=== PATIENT | female | born 1970 | race Caucasian/White ===

== ENCOUNTER → 2019-09-16 | Outpatient (CLI) | payer OTHER ==
--- NOTE | 2019-09-16 11:41 | RADIOLOGY REPORT (SQ) ---
EXAM DESCRIPTION: MRI RT LOWER JOINT WITHOUT COMPLETED DATE/TIME: 09/16/2019 10:00 am REASON FOR STUDY: M25.551 PAIN IN RIGHT HIP M25.551 PAIN IN RIGHT HIP COMPARISON: Right hip arthrogram MRI 10/31/2013 TECHNIQUE: Non arthrogram MRI righthip images acquired and stored on PACS. Multiplanar images to inc lude fat sensitive sequences as T1, fluid sensitive sequences as T2/STIR and gradient echo sequences. Large FOV fat and fluid sensitive sequences include pelvis and opposite hip. LIMITATIONS: None. FINDINGS: BONE CORTEX AND MARROW: No generalized marrow replacement. No occult fracture. No worriso me bone lesions. RIGHT HIP: FEMORAL HEAD: No occult fracture. No osteophytes or subchondral cysts. Normal sphericity of femoral h ead/neck junction. No acetabular dysplasia. No evidence femoroacetabular impingement. No significant effusion. ACETABULUM: No acetabular dysplasia. No subchondral cysts. LABRUM: There is high signal of the iliofemoral ligament and proximal attachment of the rectus femori s tendon to the anterior inferior iliac spine on axial series 10, images 8 CT head abnormal signal ex tends into the anterior labrum with anterior labral tear on sagittal images 13-16, and coronal image 9. A 3 mm paralabral cyst is present on sagittal image 16. TROCHANTER: Trace right trochanteric bursal effusion. Mild edema/fluid at the insertions of the glut eus medius and gluteus minimus. There is also a 7 mm small synovial cyst protruding off the anterior medial aspect of the right hip j oint, best shown on axial series 10, image 58 and coronal series 9, image 18. LEFT HIP: Limited evaluation. No worrisome bone lesions. No significant effusion. PELVIS, LOWER LUMBAR SPINE, SACROILIAC JOINTS: PELVIS : No insufficiency/stress fractures. No significant degenerative changes. Sacroiliac joints normal. L SPINE: No significant osteophytes or degenerative changes of the visualized lumbar spine. MUSCLES AND SOFT TISSUES: Adductors and piriformis normal. Iliopsoas bursa without fluid. Hamstring a ttachments without edema or tear. PELVIC SOFT TISSUES: No masses or adenopathy. SCIATIC NERVE: Identified, without masses or abnormal signal. OTHER: No other significant finding. IMPRESSION: Right anterior acetabular labral tear 7 mm ganglion cyst off the anterior inferior right hip joint Right trochanteric bursitis TECHNICAL DOCUMENTATION: JOB ID: [id number] 2010 [employer]- All Rights Reserved Reading location - IP/workstation name: [email or web address]
== END ==
LOC: RAD 09:14
PROVIDERS: ATTEND Nurse Practitioner Primary Care
DX: S43.431A Superior glenoid labrum lesion of right shoulder, initial encounter (principal); X58.XXXA Exposure to other specified factors, initial encounter; M25.551 Pain in right hip; M70.61 Trochanteric bursitis, right hip; M67.451 Ganglion, right hip